=== PATIENT | female | born 1950 | race Asian ===

== ENCOUNTER → 2016-11-05 | Outpatient (CLI) | payer OTHER, MEDICARE | LOC: BHFA 15:30 | PROVIDERS: ATTEND Internal Medicine Cardiovascular Disease | DX: I05.9 Rheumatic mitral valve disease, unspecified (principal) ==

== ENCOUNTER → 2016-11-05 | Outpatient (CLI) | payer OTHER, MEDICARE | LOC: FIMAGING 14:34 | PROVIDERS: ATTEND Internal Medicine | DX: Z12.31 Encounter for screening mammogram for malignant neoplasm of breast (principal) | CPT/HCPCS: G0202 ==

== ENCOUNTER 2016-11-30 21:54 | Emergency (ER) | payer OTHER, MEDICARE ==
[2016-11-30 22:04] VITALS: RESP 16; TEMP 98.2
[2016-11-30] MEDS ORDERED: FLUORESCEIN SODIUM 1 MG STRIP OP ONE ×2 (22:25→22:29)
[2016-11-30] MEDS ORDERED: PROPARACAINE 0.5% 15 ML OPHT DROP ONE (22:25)
[2016-11-30] MEDS ORDERED: PROPARACAINE 0.5% 15 ML OPHT DROP OP ONE (22:29)
--- NOTE | 2016-11-30 22:48 | EDPHY ---
H & P Time Seen by Provider: 11/30/16 22:26 HPI/ROS: CHIEF COMPLAINT: Right eye irritation HISTORY OF PRESENT ILLNESS: a 66-year-old female arrives via private vehicle complaining of right eye irritation after she was gardening and felt a branch scraped up against her eye. No exposure to high speed projectiles. No visual acuity changes. Positive photophobia. Occurred prior to arrival. At the time I evaluate her the triage nurse placed Alcaine drops she notes relief of symptoms. PRIMARY CARE PROVIDER:patient's primary aoc director intelligence officer is Dr. Isael Rosa [phone] REVIEW OF SYSTEMS: A ten point review of systems was performed and is negative with the exception of the items mentioned in the HPI PHYSICAL EXAM (Prior to examination, patient consented to physical exam, hands were washed and my usual and customary physical exam procedures followed) 1) GENERAL: Well-developed, well-nourished, alert and oriented. Appears to be in no acute distress. 2) HEAD: Normocephalic 3) HEENT: sclera anicteric 4) LUNGS: Breathing comfortably. 5) OCULAR EXAM: Visual Acuity: noted from Nurse's notes. Pupils:equal round and reactive to light EOMI Lids: no edema or swelling, upper and lower lids were everted and no foreign bodies were visualized, no areas of increased fluorescein uptake. Skin: no proptosis, no periorbital erythema or swelling, no vesicles, no pain with extraocular movements. Conjunctivae: not injected, no discharge, negative Valentine test. Cornea: exam with fluorescein shows[corneal abrasion x2 at the 5 o'clock position Anterior chamber:[normal, no hyphema or hypopyon Smoking Status: Never smoked Constitutional: Initial Vital Signs Temperature (C) 36.8 C 11/30/16 22:00 Heart Rate 55 L 11/30/16 22:00 Respiratory Rate 16 11/30/16 22:00 Blood Pressure 176/94 H 11/30/16 22:00 O2 Sat (%) 98 11/30/16 22:00 O2 Delivery Mode Room Air Allergies/Adverse Reactions: moxifloxacin Allergy (Verified 11/30/16 21:59) Home Medications: Medication Instructions Recorded Methimazole 11/30/16 ED Images - Head Eyes Right/Left: 1 - corneal abrasion MDM/Departure - MDM Medications Given: Discontinued Medications Fluorescein Sodium (Aggga-T-Aivcw) 1 mg OP EDNOW ONE Stop: 11/30/16 22:30 Last Admin: 11/30/16 22:53 Dose: 1 mg Proparacaine HCl (Alcaine 0.5%) 1 drops OP EDNOW ONE Stop: 11/30/16 22:30 Last Admin: 11/30/16 22:53 Dose: 1 drops ED Course/Re-evaluation: 10:57 p.m.: The patient requested I speak with her aoc director intelligence officer Dr. Rosa in [place]. Spoke with Dr. Rosa at this time who agrees with the plan of Ocuflox drops. The patient has a listed moxifloxacin allergy. I inquired about this and she states that when she took moxifloxacin orally she felt dizzy but did not developed allergic reaction symptoms. I recommended Ocuflox drops. - Depart Disposition: Home, Routine, Self-Care Clinical Impression: Right corneal abrasion Qualifiers: Encounter type: initial encounter Qualified Code(s): S05.01XA - Injury of conjunctiva and corneal abrasion without foreign body, right eye, initial encounter Condition: Good Instructions: Corneal Abrasion (ED), Ofloxacin (Into the eye) Referrals: Follow-up, with Dr. Rosa in 2 days [Other] - As per Instructions
[2016-11-30] MEDS ORDERED: OFLOXACIN 0.3% SOLN PREPACK OPHT.BTL TAKEHOME ONE (23:03)
[2016-11-30 23:17] VITALS: BP 154/86; PULSE 56; O2SAT 97
== END 2016-11-30 23:17 | disposition home or self-care (01) ==
DX: S05.01XA Injury of conjunctiva and corneal abrasion without foreign body, right eye, initial encounter (principal); W22.8XXA Striking against or struck by other objects, initial encounter

== ENCOUNTER → 2017-02-03 | Outpatient (CLI) | payer OTHER, MEDICARE | LOC: FCPNEURO 21:30 | PROVIDERS: ATTEND Psychiatry & Neurology Sleep Medicine | DX: G47.34 Idiopathic sleep related nonobstructive alveolar hypoventilation (principal) ==

== ENCOUNTER → 2017-02-04 | Outpatient (CLI) | payer OTHER, MEDICARE | LOC: FIMAGING 11:06 | PROVIDERS: ATTEND Internal Medicine | DX: Z13.820 Encounter for screening for osteoporosis (principal); M85.80 Other specified disorders of bone density and structure, unspecified site; E05.90 Thyrotoxicosis, unspecified without thyrotoxic crisis or storm; Z78.0 Asymptomatic menopausal state; Z79.899 Other long term (current) drug therapy ==

== ENCOUNTER 2017-03-26 20:43 | Emergency (ER) | payer OTHER, MEDICARE ==
[2017-03-26 20:50] VITALS: RESP 16; TEMP 97.5
--- NOTE | 2017-03-26 21:05 | CPEKG ---
Heart Rate: 49 RR Interval: 1224 P-R Interval: 148 QRSD Interval: 92 QT Interval: 412 QTC Interval: 372 P [place]: 54 QRS [place]: 21 T Wave [place]: -46 EKG Severity - ABNORMAL ECG - EKG Impression: SINUS BRADYCARDIA EKG Impression: PROBABLE LEFT ATRIAL ABNORMALITY EKG Impression: PROBABLE ANTEROSEPTAL INFARCT, OLD EKG Impression: LATERAL LEADS ARE ALSO INVOLVED Electronically Signed By: Daquan Ron 26-Mar-2017 21:13:09
--- NOTE | 2017-03-26 21:16 | EDPHY ---
H & P Stated Complaint: high BP at home, dizzy Time Seen by Provider: 03/26/17 21:13 HPI/ROS: CHIEF COMPLAINT: Hypertension, dizziness HISTORY OF PRESENT ILLNESS: This patient is a 66 y/o female with history of hypertension complaining of high blood pressure and dizziness associated with propranolol. She initially controlled her blood pressure well with [place] herbs for the first two years after dx of HTN. Later, she developed hypothyroidism and has been trying Western medications for both conditions. She visits her primary care physician, Dr. Sol, regularly. She took Lisinopril until the end of January, when she developed a chronic cough. She tried amlodipine after this, but had angina after one tablet and discontinued it. She attempted to control her hypertension with herbs again, but her blood pressure began to rise and she has been taking some leftover Propranolol, 10mg BID. 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 She felt lightheaded today as well, but states that her heart rate is slower than usual (around 50 vs 56). She denies chest pain, headache, numbness or tingling, or other associated symptoms. REVIEW OF SYSTEMS: A 10 point review of systems was performed and is negative with the exception of the elements mentioned in the history of present illness. - Personal History Current Tetanus/Diphtheria Vaccine: Yes Current Tetanus Diphtheria and Acellular Pertussis (TDAP): Yes Tetanus Vaccine Date: 2014 - Medical/Surgical History PMH: 1. Thyroidectomy 2. Hypertension 3. 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 PCP Dr. Sol - Physical Exam Exam: General Appearance: Alert, no distress Eyes: Pupils equal and round, no conjunctival pallor ENT, Mouth: Mucous membranes moist Neck: Normal inspection Respiratory: Lungs are clear to auscultation Cardiovascular: Bradycardic Gastrointestinal: Abdomen is soft and non- tender Neurological: A&O, nonfocal, normal gait Skin: Warm and dry, no rash Extremities: Nontender, no pedal edema Psychiatric: anxious Constitutional: Initial Vital Signs Temperature (C) 36.4 C 03/26/17 20:46 Heart Rate 51 L 03/26/17 20:46 Respiratory Rate 16 03/26/17 20:46 Blood Pressure 204/81 H 03/26/17 20:46 O2 Sat (%) 96 03/26/17 20:46 O2 Delivery Mode Room Air Allergies/Adverse Reactions: moxifloxacin Allergy (Verified 03/26/17 20:51) Home Medications: Medication Instructions Recorded Methimazole 11/30/16 Propranolol HCl 03/26/17 Medical Decision Making - Diagnostics EKG Interpretation: EKG interpreted by me reveals sinus bradycardia, rate 49, diffuse T wave flattening ED Course/Re-evaluation: 66 y/o female presents with hypertension and dizziness. Initial triage BP 204/ 81. Exam unremarkable. Repeat BP is 145/73 while I am in the room. The patient is feeling better. Discussed follow up with Dr. Sol tomorrow to discuss her blood pressure medications. Plan to d/c home in good condition. I recommended she only take 5mg propranolol tonight because of dizziness. She is comfortable with this plan. Differential Diagnosis: includes though not limited to ACS, ARF, pulmonary edema, ICH. Departure - Departure Disposition: Home, Routine, Self-Care Clinical Impression: Dizziness Hypertension Qualifiers: Hypertension type: essential hypertension Qualified Code(s): I10 - Essential ( primary) hypertension Condition: Good Instructions: Stress (ED), Hypertension (ED) Additional Instructions: 1. Call Dr. Sol in the morning to discuss your medication regimen. 2. I recommend you take only 5mg of propranolol tonight. 3. Return to the emergency department for severe headache, worsening dizziness, chest pain, shortness of breath, or other worsening of condition or concerns. Referrals: Anna Sol MD [Primary Care Provider] - As per Instructions Report Scribed for: Melania Marks Report Scribed by: Tata Etienne Date of Report: 03/26/17 Time of Report: 21:16 Physician Review and Approval Statement: 03/26/17 21:16 Portions of this note were transcribed by a medical receptionist medical assistant. I personally performed a history, physical exam, medical decision making, and confirmed accuracy of information the transcribed note.
[2017-03-26 21:31] VITALS: BP 145/73; PULSE 49; O2SAT 95
== END 2017-03-26 21:36 | disposition home or self-care (01) ==
DX: R42 Dizziness and giddiness (principal); I10 Essential (primary) hypertension